=== PATIENT | male | born 1990 | race Two or more races ===

== ENCOUNTER 2024-05-28 17:08 | Emergency (ER) | payer MEDICAID ==
[~2024-05-28] VITALS: Ht 182.9 cm; Wt 77.1 kg
[2024-05-28 17:53] VITALS: TEMP 97.8
[2024-05-28] MEDS ORDERED: TDAP [DIPH/PERTUSSIS/TET] 0.5 ML VIAL IM ONE (18:57)
[2024-05-28] MEDS ORDERED: LIDOCAINE HCL/MPF 1% 30 ML VIAL IJ ONE (18:58)
[2024-05-28] MEDS: LIDOCAINE HCL/PF 1% 30 ML VIAL TP ONE (19:06)
[2024-05-28] MEDS: TDAP [DIPH/PERTUSSIS/TET] 0.5 ML VIAL IM ONE (19:06)
[2024-05-28] MEDS ORDERED: LIDOCAINE 2% 20 ML MDV ONE (20:10)
[2024-05-28] MEDS ORDERED: ACET325T53 PO (20:52)
[2024-05-28 21:07] VITALS: BP 119/68; O2SAT 99
== END 2024-05-28 21:10 | disposition home or self-care (01) ==
LOC: ER 17:17
DX: S67.194A Crushing injury of right ring finger, initial encounter (principal); S61.214A Laceration without foreign body of right ring finger without damage to nail, initial encounter; W20.8XXA Other cause of strike by thrown, projected or falling object, initial encounter; Y93.89 Activity, other specified; Y92.89 Other specified places as the place of occurrence of the external cause; Y99.8 Other external cause status
CPT/HCPCS: 12002; 73140; 90471; 90715; 99283; J3490